=== PATIENT | female | born 1950 | race Caucasian/White ===

== ENCOUNTER 2016-12-22 08:58 | Inpatient (IN) | payer OTHER ==
[~2016-12-22] VITALS: Ht 165.1 cm; Wt 112.9 kg
[2016-12-22 09:00] VITALS: BP 167/118; PULSE 66; RESP 16; TEMP 98.5; O2SAT 99
[2016-12-22] MEDS ORDERED: NACL 0.9% 1,000 ML IV ONE (09:11)
[2016-12-22] MEDS ORDERED: KETOROLAC TROMETHAMINE 30 MG VIAL IVP ONE (09:15)
[2016-12-22] MEDS ORDERED: LORazepam 2 MG/ML VIAL (FOR ER USE) IVP ONE (09:15)
[2016-12-22] MEDS ORDERED: ONDANSETRON HCL 4 MG/2 ML VIAL IVP ONE ×2 (09:15→09:30)
[2016-12-22] MEDS ORDERED: LR 1,000 ML IV.SOLN IV ONE (09:30)
[2016-12-22] MEDS ORDERED: CLINDAMYCIN PHOSPHATE 900 mg/50mL D5W IV ONE (09:30)
[2016-12-22] MEDS ORDERED: DEXAMETHASONE SOD PHOSPHATE 4 MG/ML VIAL IVP ONE (09:30)
[2016-12-22] MEDS ORDERED: LIDOCAINE/EPI 1% 1:100000 20 ML VIAL INJ ONE (09:30)
[2016-12-22] MEDS ORDERED: SEVOFLURANE 15 MIN GAS INH ONE (09:30)
[2016-12-22] MEDS ORDERED: ROCURONIUM BROMIDE 10 MG/ML (ZEMURON) IV ONE (09:30)
[2016-12-22] MEDS ORDERED: MIDAZOLAM HCL 5 MG/5 ML VIAL IVP ONE (09:30)
[2016-12-22] MEDS ORDERED: PROPOFOL 200MG/ 20ML VIAL (DIPRIVAN) IV ONE (09:30)
[2016-12-22] MEDS ORDERED: KETOROLAC TROMETHAMINE 15 MG VIAL IVP ONE (09:30)
[2016-12-22] MEDS ORDERED: BUPIVACAINE LIPOSOME/PF 266 MG/20 ML VIAL INFIL ONE (09:30)
[2016-12-22] MEDS ORDERED: fentaNYL CITRATE 250 MCG/5 ML AMP IV ONE (09:30)
[2016-12-22 09:47] LABS: HEMATOCRIT 48.6 % (36-48); HEMOGLOBIN 15.6 g/dL (12.0-16.0); MEAN CORPUSCULAR HEMOGLOBIN 28 pg (27-31); MEAN CORPUSCULAR HGB CONC 32 % (32-36); MEAN CORPUSCULAR VOLUME 89 fL (79.0-98.0); PLATELET COUNT (AUTO) 258 K/uL (130-430); RED BLOOD CELL COUNT(AUTO) 5.49 MIL/uL (4.2-6.2); RED CELL DISTRIBUTION WIDTH 12.8 % (9.0-15.0); WHITE BLOOD COUNT (AUTO) 9.7 K/uL (4.8-10.8)
[2016-12-22 09:55] LABS: INR 0.9 (0.8-1.2); PROTHROMBIN TIME 9.8 SECS (9.5-12.5)
[2016-12-22 10:02] LABS: CALCIUM 9.5 mg/dL (8.4-11.0); CREATININE 1.04 mg/dL (0.55-1.30); POTASSIUM 4.3 mmol/L (3.5-5.1)
[2016-12-22 10:45] LABS: ATYPICAL LYMPHOCYTES % 0 % (0-0); BAND % (MANUAL) 0 % (0-6); BASOPHILS % (MANUAL) 0 % (0-2); EOSINOPHILS % (MANUAL) 0 % (0-7); LYMPHOCYTES % (MANUAL) 7 % (20-46); MONOCYTES % (MANUAL) 5 % (0-11)
[2016-12-22] MEDS ORDERED: ATEN50TA PO (10:52)
[2016-12-22] MEDS ORDERED: cefTRIAXone 1 GM in D5W 50 ML IV ONE (11:30)
[2016-12-22] MEDS ORDERED: cefTRIAXone 1 GM VIAL ONE (11:51)
[2016-12-22] MEDS ORDERED: ONDANSETRON HCL 4 MG/2 ML VIAL IVP PRN (12:00)
[2016-12-22] MEDS ORDERED: LORazepam 2 MG/ML VIAL IVP PRN (12:00)
[2016-12-22 13:10] VITALS: BP 156/63; PULSE 64; RESP 18; TEMP 98.7; O2SAT 93
[2016-12-22 13:20] VITALS: BP 156/63; PULSE 64; RESP 18; TEMP 98.7; O2SAT 94
[2016-12-22] MEDS: NORMAL SALINE 5 ML DISP.SYRIN IVF SCH ×2 (14:00→22:00)
[2016-12-22] MEDS: MORPHINE 2 MG/ML INJ. SYRINGE IVP PRN (15:44)
[2016-12-22 18:49] VITALS: BP 176/71; PULSE 65; RESP 16; TEMP 98.7; O2SAT 96
[2016-12-22 20:00] VITALS: BP 155/69; PULSE 61; RESP 18; TEMP 96.9; O2SAT 93
[2016-12-22] MEDS: LR 1,000 ML IV SCH (21:58)
[2016-12-22] MEDS: ATENOLOL 50 MG TABLET (TENORMIN) PO SCH (21:59)
[2016-12-22] MEDS: LORazepam 2 MG/ML VIAL IVP SCH ×2 (22:00→22:06)
[2016-12-23] VITALS (7 sets, daily range): BP systolic 143–190; BP diastolic 65–78; PULSE 51–63; RESP 18–20; TEMP 96.5–97.4; O2SAT 92–96
[2016-12-23] MEDS: LORazepam 2 MG/ML VIAL IVP SCH ×6 (03:00→23:00)
[2016-12-23] MEDS: NORMAL SALINE 5 ML DISP.SYRIN IVF SCH ×3 (05:50→22:00)
[2016-12-23 07:29] LABS: BILIRUBIN,URINE 1+ (NEGATIVE); BLOOD, URINE NEGATIVE (NEGATIVE); CLARITY/URINE SL HAZY (CLEAR); COLOR,URINE YELLOW (YELLOW); GLUCOSE,URINE NEGATIVE (NEGATIVE); KETONES,URINE NEGATIVE (NEGATIVE); LEUKOCYTE ESTERASE ,URINE NEGATIVE (NEGATIVE); NITRITE, URINE NEGATIVE (NEGATIVE); PROTEIN URINE TRACE (NEGATIVE); UROBILINOGEN,URINE 0.2 (0.2-1.0)
[2016-12-23 07:44] LABS: BACTERIA,URINE FEW /HPF (None Seen); MUCUS,URINE 1+ /LPF (None Seen); RBC,URINE 0-3 /HPF (0-3); WBC,URINE 0-3 /HPF (0-3)
[2016-12-23] MEDS: ATENOLOL 50 MG TABLET (TENORMIN) PO SCH ×2 (08:48→22:02)
[2016-12-23] MEDS ORDERED: POLYMYXIN 500,000/BACIT.10,000 UNITS in NS IRR 1 L IR ONE (10:24)
[2016-12-23] MEDS ORDERED: MEPERIDINE HCL/PF 25 MG/ML DISP.SYRIN IVP PRN (10:30)
[2016-12-23] MEDS ORDERED: HYDROmorphone 1 MG INJ. 1 MG/ML AMPUL IVP PRN (10:30)
[2016-12-23] MEDS ORDERED: HYDROmorphone 2 MG/ML VIAL IVP PRN ×2 (10:30)
[2016-12-23] MEDS ORDERED: LR 1,000 ML IV SCH (10:30)
[2016-12-23] MEDS ORDERED: ALBUTEROL SULFATE 0.083% 2.5 MG/3 ML VIAL.NEB INH PRN (12:15)
[2016-12-23] MEDS ORDERED: ACETAMINOPHEN 325 MG TABLET PO PRN (12:15)
[2016-12-23] MEDS ORDERED: ceFAZolin SODIUM 2 GM in D5W 100 ML IV SCH (14:00)
[2016-12-23] MEDS: LR 1,000 ML IV SCH (16:07)
[2016-12-23] MEDS: CLINDAMYCIN 600 MG in D5W 50 ML IV SCH ×2 (18:22→23:28)
[2016-12-23] MEDS: DOCUSATE SODIUM 100 MG CAPSULE PO SCH (22:01)
[2016-12-24 00:31] VITALS: BP 148/66; PULSE 57; RESP 18; TEMP 97.6; O2SAT 93
[2016-12-24] MEDS: LORazepam 2 MG/ML VIAL IVP SCH ×6 (03:23→23:37)
[2016-12-24 03:40] VITALS: BP 155/73; PULSE 59; RESP 18; TEMP 97.8; O2SAT 95
[2016-12-24] MEDS: HYDROcodone/ACETAMIN 5-325 MG TAB (NORCO/ VICODIN) PO PRN ×3 (05:36→20:38)
[2016-12-24] MEDS: NORMAL SALINE 5 ML DISP.SYRIN IVF SCH ×3 (05:37→20:44)
[2016-12-24] MEDS: CLINDAMYCIN 600 MG in D5W 50 ML IV SCH ×4 (05:38→23:38)
[2016-12-24 08:00] VITALS: BP 164/76; PULSE 60; RESP 18; TEMP 98.6; O2SAT 96
[2016-12-24] MEDS: NICOTINE 14 MG/24 HR PATCH.TD24 TD SCH ×2 (09:00→09:10)
[2016-12-24] MEDS: DOCUSATE SODIUM 100 MG CAPSULE PO SCH ×2 (09:10→20:42)
[2016-12-24] MEDS: ATENOLOL 50 MG TABLET (TENORMIN) PO SCH ×2 (09:10→20:42)
[2016-12-24] MEDS: LR 1,000 ML IV SCH (09:13)
[2016-12-24] MEDS: MORPHINE 2 MG/ML INJ. SYRINGE IVP PRN (11:30)
[2016-12-24] MEDS ORDERED: NORMAL SALINE 5 ML DISP.SYRIN IVF SCH (11:30)
[2016-12-24] MEDS ORDERED: amLODIPine BESYLATE 5 MG TABLET PO ONE ×2 (11:30)
[2016-12-24 12:00] VITALS: BP 183/95; PULSE 54; RESP 21; TEMP 98; O2SAT 97
[2016-12-24 16:00] VITALS: BP 166/73; PULSE 54; RESP 21; TEMP 97.8; O2SAT 95
[2016-12-24] MEDS ORDERED: ENALAPRILAT DIHYDRATE 1.25 MG/ML VIAL IVP PRN (17:30)
[2016-12-24 20:00] VITALS: BP 151/87; PULSE 54; RESP 18; TEMP 97.4; O2SAT 93
[2016-12-25] VITALS (8 sets, daily range): BP systolic 147–198; BP diastolic 70–88; PULSE 54–60; RESP 16–20; TEMP 96.6–97.8; O2SAT 93–96; Ht 165.1 cm; Wt 112.9 kg
[2016-12-25] MEDS: LORazepam 2 MG/ML VIAL IVP SCH ×5 (03:23→15:00)
[2016-12-25] MEDS: NORMAL SALINE 5 ML DISP.SYRIN IVF SCH ×2 (05:59→14:28)
[2016-12-25] MEDS: CLINDAMYCIN 600 MG in D5W 50 ML IV SCH ×2 (06:00→12:22)
[2016-12-25] MEDS: DOCUSATE SODIUM 100 MG CAPSULE PO SCH (09:00)
[2016-12-25] MEDS: NICOTINE 14 MG/24 HR PATCH.TD24 TD SCH (09:00)
[2016-12-25] MEDS: ATENOLOL 50 MG TABLET (TENORMIN) PO SCH (09:11)
[2016-12-25] MEDS: MORPHINE 2 MG/ML INJ. SYRINGE IVP PRN (09:27)
[2016-12-25] MEDS ORDERED: hydrALAZINE HCL 25 MG TABLET PO ONE (13:30)
[2016-12-25] MEDS ORDERED: hydrALAZINE HCL 25 MG TABLET PO SCH ×2 (13:30→21:00)
[2016-12-25] MEDS ORDERED: HYDR-1115 PO (17:21)
[2016-12-25] MEDS ORDERED: DOCU-144 PO (17:21)
[2016-12-25] MEDS ORDERED: HYDR-1189 PO (17:21)
== END 2016-12-25 17:59 | disposition home or self-care (01) | DRG 354 ==
LOC: SED 08:58 → SMU 11:51
PROVIDERS: ADMIT Surgery; ATTEND Surgery
PROC: 0WUF0JZ Supplement Abdominal Wall with Synthetic Substitute, Open Approach (ICD-10-PCS; principal; 2016-12-23 10:45)
DX: K43.0 Incisional hernia with obstruction, without gangrene (principal); Z68.41 Body mass index [BMI] 40.0-44.9, adult; K66.0 Peritoneal adhesions (postprocedural) (postinfection); Z90.49 Acquired absence of other specified parts of digestive tract; E66.01 Morbid (severe) obesity due to excess calories
CPT/HCPCS: 36415; 71010; 80048; 81000-TC; 82150-TC; 83605; 83690-TC; 85007; 85027; 85610-TC; 85730-TC; 86886; 86900; 86901; 87040-TC; 87081; 88302; 88305; 93005; 94640; 96361; 96365; 96375; 97116-GP; 99285; C1781; C9290; J0696; J1100; J1885; J2060; J2250; J2270; J2405; J2704; J3010; J3490; J7040; J7060; J7120

== ENCOUNTER 2017-04-05 05:24 | Inpatient (IN) | payer OTHER ==
[2016-12-25 14:54] VITALS: Ht 167.6 cm; Wt 123.8 kg
[2017-04-05] VITALS (18 sets, daily range): BP systolic 122–171; BP diastolic 53–82; PULSE 56–82; RESP 17–24; TEMP 97.1–99; O2SAT 96–100
[~2017-04-05] VITALS: Ht 167.6 cm; Wt 123.8 kg
[~2017-04-05 05:24] MED LIST: ATEN50TA PO; DOCU-144 PO; HYDR-1115 PO; HYDR-1189 PO
[2017-04-05] MEDS ORDERED: NACL 0.9% 1,000 ML IV ONE (05:45)
[2017-04-05] MEDS ORDERED: MULT PO (05:48)
[2017-04-05] MEDS ORDERED: FERR-57 PO (05:48)
[2017-04-05 06:31] LABS: BASOPHILS # (AUTO) 0.1 K/uL (0.0-0.2); EOSINOPHILS # (AUTO) 0.2 K/uL (0.0-0.4); NEUTROPHILS # (AUTO) 5.1 K/uL (1.8-7.7)
[2017-04-05 06:32] LABS: BILIRUBIN,URINE NEGATIVE (NEGATIVE); BLOOD, URINE NEGATIVE (NEGATIVE); CLARITY/URINE CLEAR (CLEAR); COLOR,URINE YELLOW (YELLOW); GLUCOSE,URINE NEGATIVE (NEGATIVE); KETONES,URINE NEGATIVE (NEGATIVE); LEUKOCYTE ESTERASE ,URINE NEGATIVE (NEGATIVE); NITRITE, URINE NEGATIVE (NEGATIVE); PROTEIN URINE 3+ (NEGATIVE); UROBILINOGEN,URINE 0.2 (0.2-1.0)
[2017-04-05 06:38] LABS: BASOPHILS % (AUTO) 1.7 % (0.0-2.0); CALCIUM 7.9 mg/dL (8.4-11.0); CREATININE 1.25 mg/dL (0.55-1.30); EOSINOPHILS % (AUTO) 2.8 % (0.0-4.0); LYMPHOCYTES # (AUTO) 2.3 K/uL (1.0-5.5); LYMPHOCYTES % (AUTO) 26.6 % (20.5-51.5); MEAN CORPUSCULAR HEMOGLOBIN 29 pg (27-31); MEAN CORPUSCULAR HGB CONC 32 % (32-36); MEAN CORPUSCULAR VOLUME 91 fL (79.0-98.0); MONOCYTES # (AUTO) 0.8 K/uL (0.0-1.0); MONOCYTES % (AUTO) 9.4 % (1.7-9.3); NEUTROPHILS % (AUTO) 59.5 % (40.0-70.0); PLATELET COUNT (AUTO) 345 K/uL (130-430); POTASSIUM 3.2 mmol/L (3.5-5.1); RED CELL DISTRIBUTION WIDTH 16.1 % (9.0-15.0); WHITE BLOOD COUNT (AUTO) 8.5 K/uL (4.8-10.8)
[2017-04-05 06:39] LABS: RED BLOOD CELL COUNT(AUTO) 1.97 MIL/uL (4.2-6.2)
[2017-04-05 06:40] LABS: HEMOGLOBIN 5.8 g/dL (12.0-16.0)
[2017-04-05 06:41] LABS: HEMATOCRIT 17.8 % (36-48)
[2017-04-05 06:42] LABS: ALBUMIN 2.3 g/dL (3.4-4.8); PROTHROMBIN TIME 10.5 SECS (9.5-12.5); TOTAL BILIRUBIN 0.3 mg/dL (0.0-1.0); TOTAL PROTEIN, SERUM 6.4 g/dL (6.4-8.3)
[2017-04-05] MEDS ORDERED: KETOROLAC TROMETHAMINE 30 MG VIAL IVP ONE (06:45)
[2017-04-05 06:48] LABS: BACTERIA,URINE FEW /HPF (None Seen); RBC,URINE 0-3 /HPF (0-3)
[2017-04-05 06:49] LABS: FINE GRANULAR CASTS,URINE 0-10 /LPF (None Seen); MUCUS,URINE None Seen /LPF (None Seen)
[2017-04-05] MEDS ORDERED: NACL 0.9% IV ONE (07:15)
[2017-04-05 08:04] LABS: IRON (SERUM) 34 mcg/dL (37-145); TOTAL IRON BIND. CAPACITY 157 ug/dL (250-450)
[2017-04-05] MEDS ORDERED: PANTOPRAZOLE SODIUM 40 MG/VIAL (PROTONIX) IVP SCH ×2 (09:00→21:00)
[2017-04-05] MEDS ORDERED: BISACODYL 5 MG TABLET.DR (DULCOLAX) PO ONE (17:00)
[2017-04-05] MEDS ORDERED: GOLYTELY / COLYTE SOLUTION 4 LITERS PO ONE (18:00)
[2017-04-05] MEDS: D5NS 1,000 ML IV SCH (18:30)
[2017-04-05 19:27] LABS: HEMATOCRIT 23.2 % (36-48); HEMOGLOBIN 7.5 g/dL (12.0-16.0)
[2017-04-05] MEDS ORDERED: TEMAZEPAM 15 MG CAPSULE ONE (23:00)
[2017-04-06] VITALS (38 sets, daily range): BP systolic 72–178; BP diastolic 40–94; PULSE 0–141; RESP 10–38; TEMP 96.9–99; O2SAT 90–100
[2017-04-06] MEDS ORDERED: NACL 0.9% 1,000 ML IV ONE ×4 (03:05→13:15)
[2017-04-06 03:37] LABS: HEMATOCRIT 23.9 % (36-48)
[2017-04-06 03:43] LABS: HEMOGLOBIN 7.9 g/dL (12.0-16.0)
[2017-04-06] MEDS: NOREPINEPHRINE BITARTRATE 4 MG in NS 246 ML IV PRN ×2 (05:07→13:00)
[2017-04-06] MEDS: D5NS 1,000 ML IV SCH (05:15)
[2017-04-06 07:04] LABS: CREATININE 1.22 mg/dL (0.55-1.30); POTASSIUM 3.5 mmol/L (3.5-5.1)
[2017-04-06 07:14] LABS: CALCIUM 6.5 mg/dL (8.4-11.0)
[2017-04-06 07:19] LABS: INR 1.1 (0.8-1.2); PROTHROMBIN TIME 11.7 SECS (9.5-12.5)
[2017-04-06 07:23] LABS: HEMATOCRIT 17.8 % (36-48); HEMOGLOBIN 5.9 g/dL (12.0-16.0)
[2017-04-06] MEDS ORDERED: PANTOPRAZOLE SODIUM 40 MG in NS 50 ML IV SCH ×2 (08:00→10:00)
[2017-04-06] MEDS ORDERED: NACL 0.9% 1,000 ML IV SCH ×2 (08:00→15:45)
[2017-04-06] MEDS ORDERED: fentaNYL CITRATE/PF 100 MCG/2 ML AMP ONE (08:10)
[2017-04-06] MEDS ORDERED: MIDAZOLAM HCL 5 MG/5 ML VIAL ONE ×2 (08:11)
[2017-04-06] MEDS ORDERED: SIMETHICONE 40 MG/0.6 ML ML ONE (08:12)
[2017-04-06] MEDS ORDERED: ONDANSETRON HCL 4 MG/2 ML VIAL ONE (08:18)
[2017-04-06] MEDS ORDERED: MIDAZOLAM HCL 5 MG/5 ML VIAL IVP ONE ×2 (08:26→21:55)
[2017-04-06] MEDS ORDERED: OCTREOTIDE ACETATE 1,250 MCG in NS 250 ML IV SCH (09:00)
[2017-04-06] MEDS ORDERED: PANTOPRAZOLE SODIUM 80 MG in NS 100 ML IV ONE (09:00)
[2017-04-06] MEDS ORDERED: OCTREOTIDE ACETATE 50 MCG/ML AMP IVP ONE (09:00)
[2017-04-06] MEDS ORDERED: CLINDAMYCIN PHOSPHATE 900 mg/50mL D5W IV ONE (09:45)
[2017-04-06] MEDS ORDERED: PHENYLEPHRINE HCL 30 MG in D5W 247 ML IV PRN (10:15)
[2017-04-06] MEDS ORDERED: MORPHINE 4 MG/ML INJ. SYRINGE IVP PRN (12:45)
[2017-04-06 13:08] LABS: ABG TOTAL HEMOGLOBIN 12.8 G/dL (12.0-18.0); BLOOD GAS COHb% 0.3 % (0.5-1.5); BLOOD GAS HHB 5.2 % (0.0-6.0); BLOOD GAS PH 6.974 (7.350-7.450); BLOOD O2Hb% 94.1 % (94.0-97.0)
[2017-04-06] MEDS ORDERED: SODIUM BICARBONATE 8.4% JECT 50 MEQ/50 ML SYRINGE IVP ONE ×3 (13:15→17:00)
[2017-04-06 13:16] LABS: CREATININE 1.46 mg/dL (0.55-1.30); HEMOGLOBIN 12.2 g/dL (12.0-16.0); MEAN CORPUSCULAR HEMOGLOBIN 29 pg (27-31); MEAN CORPUSCULAR HGB CONC 33 % (32-36); MEAN CORPUSCULAR VOLUME 89 fL (79.0-98.0); PLATELET COUNT (AUTO) 102 K/uL (130-430); POTASSIUM 4.3 mmol/L (3.5-5.1); RED BLOOD CELL COUNT(AUTO) 4.16 MIL/uL (4.2-6.2); RED CELL DISTRIBUTION WIDTH 18.5 % (9.0-15.0)
[2017-04-06] MEDS ORDERED: SODIUM BICARBONATE 8.4% JECT 50 MEQ/50 ML SYRINGE ONE ×4 (13:18→16:27)
[2017-04-06 13:19] LABS: CALCIUM 6.4 mg/dL (8.4-11.0); INR 1.4 (0.8-1.2)
[2017-04-06 13:21] LABS: WHITE BLOOD COUNT (AUTO) 38.7 K/uL (4.8-10.8)
[2017-04-06 14:09] LABS: ATYPICAL LYMPHOCYTES % 0 % (0-0); BAND % (MANUAL) 19 % (0-6); BASOPHILS % (MANUAL) 0 % (0-2); EOSINOPHILS % (MANUAL) 0 % (0-7); LYMPHOCYTES % (MANUAL) 14 % (20-46); METAMYELOCYTES % 1 % (0-0); MONOCYTES % (MANUAL) 5 % (0-11)
[2017-04-06 14:54] LABS: ABG TOTAL HEMOGLOBIN 12.9 G/dL (12.0-18.0); BLOOD GAS PH 7.264 (7.350-7.450); BLOOD O2Hb% 96.3 % (94.0-97.0)
[2017-04-06 14:55] LABS: BLOOD GAS COHb% 0.4 % (0.5-1.5); BLOOD GAS HHB 2.5 % (0.0-6.0)
[2017-04-06] MEDS ORDERED: ATROPINE SULFATE 1 MG/10 ML SYRINGE IVP ONE (15:00)
[2017-04-06 15:24] LABS: HEMATOCRIT 39.2 % (36-48); HEMOGLOBIN 12.7 g/dL (12.0-16.0)
[2017-04-06] MEDS ORDERED: DOPamine PREMIX 250 ML IV ONE (15:32)
[2017-04-06] MEDS ORDERED: DOPamine PREMIX 250 ML IV PRN (15:45)
[2017-04-06] MEDS ORDERED: LORazepam 2 MG/ML VIAL IVP PRN (15:45)
[2017-04-06] MEDS ORDERED: CEFEPIME 1 GM in D5W 50 ML IV SCH (15:45)
[2017-04-06] MEDS ORDERED: SODIUM BICARBONATE 8.4% VIAL 50 MEQ/50 ML VIAL INJ ONE ×2 (15:45→17:15)
[2017-04-06] MEDS ORDERED: PHENYLEPHRINE HCL 30 MG in NS 247 ML IV PRN (16:30)
[2017-04-06] MEDS ORDERED: EPINEPHrine 1 MG/ML AMP ONE (16:41)
[2017-04-06 17:04] LABS: BLOOD GAS PH 7.049 (7.350-7.450)
[2017-04-06 17:05] LABS: ABG TOTAL HEMOGLOBIN 11.3 G/dL (12.0-18.0); BLOOD GAS COHb% 0.4 % (0.5-1.5); BLOOD GAS HHB 9.9 % (0.0-6.0); BLOOD O2Hb% 88.9 % (94.0-97.0)
[2017-04-06] MEDS ORDERED: SODIUM BICARBONATE 8.4% JECT 100 MEQ in 0.45% NACL 1,000 ML IV SCH (17:15)
[2017-04-06] MEDS ORDERED: CLINDAMYCIN 600 mg/50mL D5W 50 ML IV SCH (18:00)
[2017-04-06] MEDS ORDERED: TEMAZEPAM 15 MG CAPSULE PO SCH (21:00)
[2017-04-06] MEDS ORDERED: ROCURONIUM BROMIDE 10 MG/ML (ZEMURON) IV ONE (21:55)
[2017-04-06] MEDS ORDERED: LR 1,000 ML IV.SOLN IV ONE (21:55)
[2017-04-06] MEDS ORDERED: ONDANSETRON HCL 4 MG/2 ML VIAL IVP ONE (21:55)
[2017-04-06] MEDS ORDERED: NS 1000 ML BAG IV ONE (21:55)
[2017-04-06] MEDS ORDERED: fentaNYL CITRATE 250 MCG/5 ML AMP IV ONE (21:55)
[2017-04-06] MEDS ORDERED: SEVOFLURANE 15 MIN GAS INH ONE (21:55)
[2017-04-06] MEDS ORDERED: metroNIDAZOLE 500 mg/NS 100 ML IV SCH (22:00)
[2017-04-07 09:34] LABS: BLOOD GAS BASE EXCESS -17.9 mmol/L (-3.0-3.0)
[2017-04-07 09:36] LABS: BLOOD GAS BASE EXCESS -14.5 mmol/L (-3.0-3.0)
[2017-04-07 09:37] LABS: BLOOD GAS BASE EXCESS -21.8 mmol/L (-3.0-3.0)
== END 2017-04-06 21:56 | disposition expired | DRG 326 ==
LOC: SED 05:24 → SIC 07:10
PROVIDERS: ADMIT Internal Medicine Hospice and Palliative Medicine; ATTEND Internal Medicine Hospice and Palliative Medicine
PROC: 30233N1 Transfusion of Nonautologous Red Blood Cells into Peripheral Vein, Percutaneous Approach (ICD-10-PCS; 2017-04-05)
PROC: 0JB80ZZ Excision of Abdomen Subcutaneous Tissue and Fascia, Open Approach (ICD-10-PCS; 2017-04-06)
PROC: 0W3P0ZZ Control Bleeding in Gastrointestinal Tract, Open Approach (ICD-10-PCS; 2017-04-06)
PROC: 02HV33Z Insertion of Infusion Device into Superior Vena Cava, Percutaneous Approach (ICD-10-PCS; 2017-04-06)
PROC: B548ZZA Ultrasonography of Superior Vena Cava, Guidance (ICD-10-PCS; 2017-04-06)
PROC: 5A12012 Performance of Cardiac Output, Single, Manual (ICD-10-PCS; 2017-04-06)
PROC: 30233L1 Transfusion of Nonautologous Fresh Plasma into Peripheral Vein, Percutaneous Approach (ICD-10-PCS; 2017-04-06)
PROC: 30233K1 Transfusion of Nonautologous Frozen Plasma into Peripheral Vein, Percutaneous Approach (ICD-10-PCS; 2017-04-06)
PROC: 5A1935Z Respiratory Ventilation, Less than 24 Consecutive Hours (ICD-10-PCS; 2017-04-06)
PROC: 0BH17EZ Insertion of Endotracheal Airway into Trachea, Via Natural or Artificial Opening (ICD-10-PCS; 2017-04-06)
PROC: 0DJ08ZZ Inspection of Upper Intestinal Tract, Via Natural or Artificial Opening Endoscopic (ICD-10-PCS; principal; 2017-04-06 08:00)
PROC: 0DQ70ZZ Repair Stomach, Pylorus, Open Approach (ICD-10-PCS; 2017-04-06 08:00)
DX: K26.4 Chronic or unspecified duodenal ulcer with hemorrhage (principal); J96.00 Acute respiratory failure, unspecified whether with hypoxia or hypercapnia; Z68.41 Body mass index [BMI] 40.0-44.9, adult; N17.9 Acute kidney failure, unspecified; D62 Acute posthemorrhagic anemia; R57.1 Hypovolemic shock; I95.9 Hypotension, unspecified; E66.01 Morbid (severe) obesity due to excess calories; D64.9 Anemia, unspecified; I46.9 Cardiac arrest, cause unspecified; Z66 Do not resuscitate; F17.200 Nicotine dependence, unspecified, uncomplicated; I10 Essential (primary) hypertension; Z96.653 Presence of artificial knee joint, bilateral; M21.372 Foot drop, left foot; W18.39XA Other fall on same level, initial encounter; Y93.89 Activity, other specified; Y92.098 Other place in other non-institutional residence as the place of occurrence of the external cause; Y99.8 Other external cause status; Z90.49 Acquired absence of other specified parts of digestive tract; Z88.0 Allergy status to penicillin
CPT/HCPCS: 36415; 36600; 43235; 45380; 70450-TC; 71010; 80048; 80053; 81000-TC; 82607; 82803-TC; 83540-TC; 83550-TC; 83605; 83880; 84484; 85007; 85018-TC; 85025; 85027; 85610-TC; 85730-TC; 86886; 86900; 86901; 86920; 87040-TC; 87081; 87086; 88304; 92950; 93005; 93306; 94002; 96361; 96374; 99291; C1751; C9113; J0171; J0461; J0692; J1265; J1885; J2250; J2354; J2370; J2405; J3010; J3490; J7030; J7042; J7050; J7060; J7120; P9021; P9059